=== PATIENT | female | born 1970 | race African-American/Black ===

== ENCOUNTER → 2023-11-18 | Outpatient (CLI) | payer BC ==
[2023-11-18 11:05] LABS: BASOPHILS % 1.4 % (0.0-2.0); EOSINOPHILS % 1.2 % (0.0-5.0); HEMOGLOBIN. 13.7 g/dL (12.0-16.0); LYMPHOCYTES % 26.5 % (20.0-50.0); MEAN CORPUSCULAR HEMOGLOBIN 31.6 pg (28.0-32.0); MEAN CORPUSCULAR HGB CONC 33.4 g/dL (31.0-37.0); MEAN CORPUSCULAR VOLUME 94.7 fL (81.0-99.0); MEAN PLATELET VOLUME 8.1 fl (7.4-10.4); MONOCYTES % 4.6 % (2.0-8.0); NEUTROPHILS % 66.3 % (40.0-76.0); PLATELET 334 x1000/uL (130-400); RED BLOOD CELL COUNT 4.33 mill/uL (4.2-5.4); WHITE BLOOD COUNT 11.4 x1000/uL (4.5-11.0)
[2023-11-18 11:13] LABS: CHLORIDE 106 mEq/L (98-107); POTASSIUM 3.8 mEq/L (3.5-5.1); SODIUM 140 mEq/L (136-145)
[2023-11-18 11:15] LABS: CALCIUM 8.9 mg/dL (8.7-10.4); CARBON DIOXIDE 29 mEq/L (21-32)
[2023-11-18 11:20] LABS: CREATININE 0.7 mg/dL (0.6-1.0); GLUCOSE 153 mg/dL (70-105)
[2023-11-18 11:21] LABS: LDL CHOLESTEROL 74 mg/dL (5-100); TRIGLYCERIDE 77 mg/dL (0-150); UREA NITROGEN BLOOD 11 mg/dL (9-23)
[2023-11-18 11:22] LABS: ALANINE AMINOTRANSFERASE 18 IU/L (10-49); ALBUMIN 4.7 g/dL (3.2-4.8); ASPARTATE AMINOTRANSFERASE 12 IU/L (<34); CHOLESTEROL 122 mg/dL (<200)
[2023-11-18 11:23] LABS: BILIRUBIN TOTAL 0.4 mg/dL (0.1-1.0); HDL CHOLESTEROL 36 mg/dL (>65); PROTEIN TOTAL 7.9 g/dL (6.0-8.3)
[2023-11-18 11:24] LABS: T4 FREE 1.14 ng/dL (0.89-1.76); THYROID STIMULATING HORMONE 0.82 uIU/mL (0.55-4.78)
== END | disposition home or self-care (01) ==
LOC: LAB 10:31
PROVIDERS: ATTEND Internal Medicine Endocrinology, Diabetes & Metabolism
DX: I10 Essential (primary) hypertension (principal); E11.9 Type 2 diabetes mellitus without complications; E78.5 Hyperlipidemia, unspecified; E04.9 Nontoxic goiter, unspecified
CPT/HCPCS: 36415; 80053; 80061; 82043; 82570; 83036; 84439; 84443; 85025; 86376

== ENCOUNTER → 2023-11-23 | Outpatient (CLI) | payer BC | END | disposition home or self-care (01) | LOC: MAMMO 07:42 | PROVIDERS: ATTEND Internal Medicine | DX: N60.01 Solitary cyst of right breast (principal); R59.0 Localized enlarged lymph nodes; R92.2 Inconclusive mammogram | CPT/HCPCS: 76642; 77062; 77066; G0279 ==

== ENCOUNTER → 2023-11-23 | Outpatient (CLI) | payer BC | END | disposition home or self-care (01) | LOC: EDUNIT# 10-19 17:12 → US 09:23 | PROVIDERS: ATTEND Internal Medicine Endocrinology, Diabetes & Metabolism | DX: E04.2 Nontoxic multinodular goiter (principal) | CPT/HCPCS: 76536 ==

== ENCOUNTER → 2024-01-31 | Outpatient (CLI) | payer BC ==
[2024-01-31 10:14] LABS: EOSINOPHILS % 1.5 % (0.0-5.0); HEMATOCRIT. 43.1 % (36.0-48.0); MEAN CORPUSCULAR HEMOGLOBIN 31.2 pg (28.0-32.0)
[2024-01-31 10:20] LABS: CHLORIDE 107 mEq/L (98-107); POTASSIUM 3.6 mEq/L (3.5-5.1); SODIUM 139 mEq/L (136-145)
[2024-01-31 10:21] LABS: CALCIUM 9.8 mg/dL (8.7-10.4); CARBON DIOXIDE 26 mEq/L (21-32)
[2024-01-31 10:26] LABS: CREATININE 0.7 mg/dL (0.6-1.0); GLUCOSE 131 mg/dL (70-105); TRIGLYCERIDE 66 mg/dL (0-150)
[2024-01-31 10:27] LABS: ALANINE AMINOTRANSFERASE 21 IU/L (10-49); ASPARTATE AMINOTRANSFERASE 11 IU/L (<34); LDL CHOLESTEROL 69 mg/dL (5-100); UREA NITROGEN BLOOD 9 mg/dL (9-23)
[2024-01-31 10:28] LABS: ALBUMIN 4.3 g/dL (3.2-4.8); CHOLESTEROL 122 mg/dL (<200); HDL CHOLESTEROL 34 mg/dL (>65); HEMOGLOBIN. 14.3 g/dL (12.0-16.0); LYMPHOCYTES % 29.2 % (20.0-50.0); MEAN CORPUSCULAR HGB CONC 33.1 g/dL (31.0-37.0); MEAN CORPUSCULAR VOLUME 94.3 fL (81.0-99.0); MEAN PLATELET VOLUME 8.4 fl (7.4-10.4); MONOCYTES % 5.5 % (2.0-8.0); NEUTROPHILS % 62.8 % (40.0-76.0); PLATELET 331 x1000/uL (130-400); RED BLOOD CELL COUNT 4.57 mill/uL (4.2-5.4); RED CELL DISTRIBUTION WIDTH 14.2 % (11.6-14.6); WHITE BLOOD COUNT 9.4 x1000/uL (4.5-11.0)
[2024-01-31 10:29] LABS: BILIRUBIN TOTAL 0.4 mg/dL (0.1-1.0); PROTEIN TOTAL 7.3 g/dL (6.0-8.3)
[2024-01-31 10:30] LABS: THYROID STIMULATING HORMONE 0.75 uIU/mL (0.55-4.78)
[2024-01-31 10:33] LABS: DIFFERENTIAL COMMENT 1
[2024-02-01 13:11] LABS: *CREATININE RANDOM URINE 74.7 mg/dL (Not Estab.); MICROALBUMIN RANDOM URINE 11.5 ug/mL (Not Estab.)
== END | disposition home or self-care (01) ==
LOC: LAB 09:43
PROVIDERS: ATTEND Internal Medicine Endocrinology, Diabetes & Metabolism
DX: I10 Essential (primary) hypertension (principal); E11.9 Type 2 diabetes mellitus without complications; E78.5 Hyperlipidemia, unspecified; E04.1 Nontoxic single thyroid nodule
CPT/HCPCS: 36415; 80053; 80061; 82043; 82570; 83036; 84439; 84443; 85025

== ENCOUNTER → 2024-02-11 | Day surgery (SDC) | payer BC ==
[~2024-02-11] MED LIST: LIDOCAINE HCL 1% 10 MG/ML 10ML VIAL ONE; SODIUM BICARBONATE 4% 2.4MEQ/5ML VIAL IV ONE
== END | disposition home or self-care (01) ==
LOC: RAD 08:23
PROVIDERS: ATTEND Internal Medicine Endocrinology, Diabetes & Metabolism
DX: E04.1 Nontoxic single thyroid nodule (principal); Z79.899 Other long term (current) drug therapy
CPT/HCPCS: 10005; J3490 ×2

== ENCOUNTER → 2024-04-18 | Outpatient (CLI) | payer BC ==
[2024-04-18 09:37] LABS: BASOPHILS % 1.4 % (0.0-2.0); EOSINOPHILS % 1.9 % (0.0-5.0); HEMATOCRIT. 41.8 % (36.0-48.0); HEMOGLOBIN. 14.1 g/dL (12.0-16.0); MEAN CORPUSCULAR HEMOGLOBIN 31.1 pg (28.0-32.0); MEAN CORPUSCULAR HGB CONC 33.8 g/dL (31.0-37.0); MEAN CORPUSCULAR VOLUME 92.1 fL (81.0-99.0); MEAN PLATELET VOLUME 7.7 fl (7.4-10.4); MONOCYTES % 6.7 % (2.0-8.0); PLATELET 351 x1000/uL (130-400); RED BLOOD CELL COUNT 4.54 mill/uL (4.2-5.4); RED CELL DISTRIBUTION WIDTH 14.1 % (11.6-14.6); WHITE BLOOD COUNT 9.7 x1000/uL (4.5-11.0)
[2024-04-18 09:45] LABS: CHLORIDE 108 mEq/L (98-107); POTASSIUM 4.4 mEq/L (3.5-5.1); SODIUM 141 mEq/L (136-145)
[2024-04-18 09:46] LABS: CALCIUM 9.6 mg/dL (8.7-10.4); CARBON DIOXIDE 28 mEq/L (21-32)
[2024-04-18 09:51] LABS: CREATININE 0.8 mg/dL (0.6-1.0); GLUCOSE 166 mg/dL (70-105); TRIGLYCERIDE 105 mg/dL (0-150); UREA NITROGEN BLOOD 9 mg/dL (9-23)
[2024-04-18 09:52] LABS: LDL CHOLESTEROL 129 mg/dL (5-100)
[2024-04-18 09:53] LABS: ALANINE AMINOTRANSFERASE 38 IU/L (10-49); ALBUMIN 4.3 g/dL (3.2-4.8); ASPARTATE AMINOTRANSFERASE 15 IU/L (<34); BILIRUBIN TOTAL 0.4 mg/dL (0.1-1.0); CHOLESTEROL 189 mg/dL (<200); HDL CHOLESTEROL 38 mg/dL (>65); PROTEIN TOTAL 7.6 g/dL (6.0-8.3)
[2024-04-18 09:55] LABS: T4 FREE 1.13 ng/dL (0.89-1.76)
[2024-04-18 09:56] LABS: THYROID STIMULATING HORMONE 0.89 uIU/mL (0.55-4.78)
== END | disposition home or self-care (01) ==
LOC: LAB 09:11
PROVIDERS: ATTEND Internal Medicine Endocrinology, Diabetes & Metabolism
DX: I10 Essential (primary) hypertension (principal); E11.9 Type 2 diabetes mellitus without complications; E04.1 Nontoxic single thyroid nodule
CPT/HCPCS: 36415; 80053; 80061; 83036; 84439; 84443; 85025

== ENCOUNTER 2024-06-19 18:15 | Emergency (ER) | payer BC ==
[~2024-06-19] VITALS: Ht 167.6 cm; Wt 91.0 kg
[2024-06-19 18:16] VITALS: O2SAT 98
[2024-06-19 18:17] VITALS: BP 173/89; PULSE 85; RESP 18; TEMP 36.7; O2SAT 98
[2024-06-19] MEDS ORDERED: MELO-105 MT (20:14)
[2024-06-19] MEDS ORDERED: T3 PO (20:14)
[2024-06-19] MEDS: IBUPROFEN 600MG TABLET PO ONE (20:24)
== END 2024-06-19 20:25 | disposition home or self-care (01) ==
LOC: ER 18:15
DX: S80.02XA Contusion of left knee, initial encounter (principal); M17.12 Unilateral primary osteoarthritis, left knee; Z79.1 Long term (current) use of non-steroidal anti-inflammatories (NSAID); Z90.710 Acquired absence of both cervix and uterus; W19.XXXA Unspecified fall, initial encounter; Y93.89 Activity, other specified; Y92.89 Other specified places as the place of occurrence of the external cause; Y99.8 Other external cause status
CPT/HCPCS: 73562; 99283

== ENCOUNTER → 2024-10-05 | Outpatient (CLI) | payer BC ==
[~2024-10-05] MED LIST changes: -LIDOCAINE HCL 1% 10 MG/ML 10ML VIAL ONE; +MELO-105 MT; -SODIUM BICARBONATE 4% 2.4MEQ/5ML VIAL IV ONE; +T3 PO
[2024-10-05 09:13] LABS: BASOPHILS % 0.8 % (0.0-2.0); EOSINOPHILS % 2.2 % (0.0-5.0); HEMATOCRIT. 40.7 % (36.0-48.0); HEMOGLOBIN. 13.7 g/dL (12.0-16.0); LYMPHOCYTES % 29.6 % (20.0-50.0); MEAN PLATELET VOLUME 7.6 fl (7.4-10.4); MONOCYTES % 5.3 % (2.0-8.0); NEUTROPHILS % 62.1 % (40.0-76.0); PLATELET 332 x1000/uL (130-400); RED BLOOD CELL COUNT 4.39 mill/uL (4.2-5.4); RED CELL DISTRIBUTION WIDTH 14.2 % (11.6-14.6)
[2024-10-05 09:30] LABS: CREATININE 0.7 mg/dL (0.6-1.0); TRIGLYCERIDE 81 mg/dL (0-150); UREA NITROGEN BLOOD 10 mg/dL (9-23)
[2024-10-05 09:31] LABS: ASPARTATE AMINOTRANSFERASE 11 IU/L (<34); LDL CHOLESTEROL 71 mg/dL (5-100)
[2024-10-05 09:32] LABS: BILIRUBIN TOTAL 0.4 mg/dL (0.1-1.0); PROTEIN TOTAL 7.3 g/dL (6.0-8.3)
[2024-10-05 09:34] LABS: T4 FREE 1.14 ng/dL (0.89-1.76)
== END | disposition home or self-care (01) ==
LOC: LAB 08:47
PROVIDERS: ATTEND Internal Medicine Endocrinology, Diabetes & Metabolism
DX: I10 Essential (primary) hypertension (principal); E11.9 Type 2 diabetes mellitus without complications; E55.9 Vitamin D deficiency, unspecified; E04.1 Nontoxic single thyroid nodule; E78.5 Hyperlipidemia, unspecified
CPT/HCPCS: 36415; 80053; 80061; 82306; 83036; 84439; 84443; 85025